=== PATIENT | male | born 1975 | race Hispanic/Latino ===

== ENCOUNTER 2017-10-27 19:52 | Emergency (ER) | payer SELFPAY ==
--- NOTE | 2017-10-27 21:02 | RAD ---
EXAM: CHEST TWO VIEWS 10/27/17 HISTORY: Cough. COMPARISON: None. FINDINGS: There is obscuration of the left and right hemidiaphragm as well as the left and right heart border d ue to pleural and parenchymal changes in the lung bases. There is no pneumothorax or osseous abnormal ity. IMPRESSION: Bibasilar pleural and parenchymal changes. Continues surveillance is recommended to ensure resolution . POS: [facility]
== END 2017-10-27 22:21 | disposition home or self-care (01) ==
LOC: ERS 19:52
DX: J18.9 Pneumonia, unspecified organism (principal); E11.9 Type 2 diabetes mellitus without complications
CPT/HCPCS: 71046; 93005; 94640; J7620